=== PATIENT | female | born 1940 | race Caucasian/White ===

== ENCOUNTER → 2017-04-05 | Outpatient (CLI) | payer OTHER ==
[~2017-04-05] VITALS: Ht 165.1 cm; Wt 63.5 kg
[~2017-04-05] MED LIST: ALTACE10 MG PO; CARDIZEM CD240 MG PO; ELIQUIS2.5 MG PO
--- NOTE | ~2017-04-05 | EKG ---
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
[2017-04-05 07:34] VITALS: BP 126/69
== END | disposition home or self-care (01) ==
LOC: CATH 06:48
DX: I48.91 Unspecified atrial fibrillation (principal); I10 Essential (primary) hypertension; Z82.49 Family history of ischemic heart disease and other diseases of the circulatory system
CPT/HCPCS: 62110; 62900

== ENCOUNTER → 2019-02-21 | Outpatient (CLI) | payer OTHER ==
--- NOTE | 2019-02-21 13:49 | 2DMMODE ---
[facility] [place] [address] 2 D/M-MODE ECHOCARDIOGRAM Name: AISHA ZAMBRANO Room #: REG [facility]#: [id number] ������������� Admission: 02/21/19 ������������� Attend Phys: Shashank Babcock Discharge: ��� ������������� ��� Date of : 36 Date of Service: 02/21/19 1349 �� Report #: [id number] �������� ��������������������������������������������[id number] THIS REPORT FOR: //name// APPROVED REPORT Study performed: 02/21/2019 12:58:03 EXAM: Comprehensive 2D, Doppler, and color-flow Echocardiogram Patient Location: Out-Patient Status: routine BSA: 1.72 HR: 66 bpm BP: 140/68 mmHg Rhythm: NSR Other Information Study Quality: Good Indications Atrial Fibrillation Hx: Cardioversion 2D Dimensions RVDd: 38.49 mm IVSd: 9.58 (7-11mm) LVOT Diam: 21.40 (18-24mm) LVDd: 49.86 mm PWd: 7.79 (7-11mm) Ascending Ao: 37.74 (22-36mm) LVDs: 31.74 (25-40mm) Aortic Root: 32.75 mm Volumes Left Atrial Volume (Systole) Single Plane 4CH: 42.28 mL Single Plane 2CH: 48.56 mL LA ESV Index: 29.00 mL/m2 Aortic Valve AoV Peak Teofilo.: 1.67 m/s AO Peak Gr.: 11.16 mmHg LVOT Max P.69 mmHg LVOT Max V: 1.08 m/s CHAO Vmax: 2.33 cm2 Mitral Valve E/A Ratio: 0.8 MV Decel. Time: 218.30 ms [facility] [address] [address] 2 D/M-MODE ECHOCARDIOGRAM Name: AISHA ZAMBRANO Alicia Room #: [facility]#: [id number] ������������� Admission: 02/21/19 ������������� Attend Phys: Shashank Babcock Discharge: ��� ������������� ��� Date of : 36 Date of Service: 02/21/19 1349 �� Report #: [id number] �������� ��������������������������������������������[id number] MV E Max Teofilo.: 0.70 m/s MV A Teofilo.: 0.86 m/s MV PHT: 63.31 ms IVRT: 87.66 ms Pulmonary Valve PV Peak Teofilo.: 0.89 m/s PV Peak Gr.: 3.16 mmHg Pulmonary Vein P Vein S: 0.68 m/s P Vein D: 0.46 m/s P Vein S/D Ratio: 1.48 Tricuspid Valve TR Peak Teofilo.: 2.71 m/s RAP Estimate: 5.00 mmHg TR Peak Gr.: 29.42 mmHg PA Pressure: 34.00 mmHg Left Ventricle The left ventricle is normal size. There is normal LV segmental wall motion. Left ventricular systolic function is normal. LVEF is 55%. Mild diastolic dysfunction is present (impaired relaxation pattern). Right Ventricle The right ventricle is normal size. The right ventricular systolic function is normal. Atria The left atrium size is normal. The right atrium size is normal. Aortic Valve Aortic valve is trileaflet, minimally calcified. Trace aortic regurgitation. There is no aortic valvular stenosis. Mitral Valve Systolic leaflet flattening without definite prolapse Moderate mitral regurgitation. There is mild mitral valve prolapse. Tricuspid Valve The tricuspid valve is normal in structure. Mild tricuspid regurgitation. Estimated PAP is 35mmHg. Pulmonic Valve The pulmonary valve is normal in structure. Trace pulmonic [facility] [address] [place] [address] 2 D/M-MODE ECHOCARDIOGRAM Name: AISHA ZAMBRANO Alicia Room #: [facility]#: [id number] ������������� Admission: 02/21/19 ������������� Attend Phys: Shashank Babcock Discharge: ��� ������������� ��� Date of : 36 Date of Service: 02/21/19 1349 �� Report #: [id number] �������� ��������������������������������������������[id number] regurgitation. Great Vessels Ascending aorta measures at the upper limits of normal. IVC is normal in size and collapses >50% with inspiration. Pericardium There is no pericardial effusion. <Conclusion> Left ventricular systolic function is normal. There is normal LV segmental wall motion. LVEF is 55%. Mild diastolic dysfunction Aortic valve is trileaflet, minimally calcified. Trace aortic regurgitation, no stenosis. Systolic leaflet flattening without definite prolapse. Moderate mitral regurgitation. Pulmonary artery pressure of 35mmHg There is no pericardial effusion. ��������������������������������������������� <ELECTRONICALLY SIGNED> ���������������������������������������� By: Pawan Hancock MD, FAC ��������������������������������������������� 02/21/199 48 48 Pawan Hancock MD, FAC /INF
== END ==
LOC: CV 11:05
DX: I08.3 Combined rheumatic disorders of mitral, aortic and tricuspid valves (principal); I10 Essential (primary) hypertension; I48.1 Persistent atrial fibrillation

== ENCOUNTER → 2019-07-27 | Outpatient (CLI) | payer OTHER | LOC: NUC 07:31 | DX: I48.91 Unspecified atrial fibrillation (principal); I10 Essential (primary) hypertension; E78.5 Hyperlipidemia, unspecified; Z79.899 Other long term (current) drug therapy ==

== ENCOUNTER → 2019-08-14 | Outpatient (CLI) | payer OTHER ==
--- NOTE | ~2019-08-14 | P ---
[facility] [place] [address] PROCEDURE REPORT Name: AISHA ZAMBRANO [id number] Admission: 08/14/19 Attend Phys: Shashank Babcock MD Discharge: Date of : 36 Report #: [id number] THIS REPORT FOR: //name// CC: Ramy Babcock PREOPERATIVE DIAGNOSIS: Palpitations. POSTOPERATIVE DIAGNOSIS: Palpitations. The patient is a patient with history of AFib and recurrent palpitations. She is here for implantable loop recorder insertion. DESCRIPTION OF PROCEDURE: The patient underwent informed consent. She was prepped and draped in a sterile fashion. Next, I injected lidocaine at the incision site. Incision was made and the device was injected under the skin and the incision site was sutured with 3-0 Vicryl. Surgical glue was placed outer skin layer. There were no procedure related complications. The implanted device was a [employer] Confirm, model #3500, serial [id number]. CONCLUSIONS: Successful implantation of an implantable loop recorder. By: [id number] Shashank Babcock MD /nt
[2019-08-14 13:55] VITALS: BP 169/81
== END | disposition home or self-care (01) ==
LOC: CATH 10:57
DX: R00.2 Palpitations (principal); I48.91 Unspecified atrial fibrillation; Z79.01 Long term (current) use of anticoagulants; Z79.899 Other long term (current) drug therapy

== ENCOUNTER → 2019-11-21 | Outpatient (CLI) | payer OTHER ==
[~2019-11-21] VITALS: Ht 165.1 cm; Wt 62.6 kg
[~2019-11-21] MED LIST changes: +TAMBOCOR 100 M100 M1 PO
[2019-11-21 08:21] VITALS: BP 143/54
[2019-11-21 08:45] LABS: HEMATOCRIT 31.3 % (37.0-47.0); HEMOGLOBIN 10.1 gm/dL (12.0-15.0); MCH 27.9 pg (26.0-34.0); MCHC 32.1 g/dL (28.0-37.0); MCV 86.9 fL (80.0-100.0); RBC 3.6 mil/uL (4.20-5.00); RDW 14.5 % (10.5-14.5)
[2019-11-21 08:55] LABS: CALCIUM 8.7 mg/dL (8.5-10.1); CREATININE 1.2 mg/dL (0.6-1.0)
--- NOTE | 2019-11-21 12:43 | EKG ---
[facility] [place] [address] ELECTROCARDIOGRAM REPORT Name: AISHA ZAMBRANO Room #: REG [facility]#: [id number] Admission: 11/21/19 Attend Phys: Gaurav Patel MD Discharge: Date of : 36 Report #: [id number] THIS REPORT FOR: cc: Ramy Field MD, David P. 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 <ELECTRONICALLY SIGNED> By: Pawan Hancock MD, [facility] 11/21/1960 7 7 Pawan Hancock MD, FAC /EPI
--- NOTE | 2019-11-21 15:41 | CATHLAB ---
[facility] [place] [address] INVASIVE PROCEDURE REPORT Name: AIHSA ZAMBRANO Room #: REG [facility].#: [id number] Admission: 11/21/19 Attend Phys: Gaurav Patel MD Discharge: Date of : 36 Report #: [id number] THIS REPORT FOR: cc: Ramy Field MD, David P. MD Park, Jin S. MD ~ APPROVED REPORT Study performed: 11/21/2019 08:38:15 Patient Details Patient Status: Out-Patient Room #: The patient is a 78 year-old female Event Personnel Gaurav Patel Wagon Driver Salesperson, Rell Bang RTLeeroy Monitor, Ramy Coronado Monitor, Shakira Johnson Johnson, Ashley RN sheetmetal patternmaker Performed Left Heart Cath w/or w/o Coronaries [id number] [facility] Art Access - R femoral artery* [id number] Initial Mod Sed Same Phys/QHP Gr5y [id number] Hemostasis with Manual pressure Indication Atrial fibrillation, Dyspnea, Chest pain Risk Factors Hypercholesterolemia, Hypertension Procedure Narrative The Right Groin^ was infiltrated with 1% Lidocaine subcutaneous anesthesia. A PINNACLE 4FR Sheath #[id number] sheath was inserted into the RFA^. Coronary angiography was performed using coronary diagnostic catheters. The right coronary system was accessed and visualized with a JR4 catheter. The left coronary system was accessed and visualized with a JL4 catheter. The left ventricle was accessed and visualized with a PIGTAIL catheter. Hemostasis was obtained with manual pressure following sheath removal without any complications. The patient tolerated the procedure well and there were no complications associated with the procedure. There was no hematoma. Intraoperative Conscious Sedation [facility] [address] [place] [address] INVASIVE PROCEDURE REPORT Name: KENYAAISHA L Room #: REG [facility]#: [id number] Admission: 11/21/19 Attend Phys: Gaurav Patel MD Discharge: Date of : 36 Report #: [id number] Sedation start time: 10:02 Case end Time: 10:28 Fentanyl 100 mcg Versed 1 mg Fluoro Time: 3.20 minutes Dose: DAP 3023.00 cGycm2 806 mGy Contrast Type and Amount: Visipaque 35 ml Coronary Angiography The patient's coronary anatomy is co- dominant. Diagnostic Cath Left Main The left main artery is short segment, with no flow-limiting lesions. LAD The LAD is a moderate size caliber vessel, traversing the anterior wall and wrapping around the apex. There is mild diffuse disease in the mid segment, 20%. Diagonal 1 This is a small-caliber vessel, patent with no flow-limiting lesions. Diagonal 2 This is a moderate size caliber vessel, patent with no flow-limiting lesions. Circumflex This is a moderate size caliber vessel, patent with no flow-limiting lesions. This is a codominant vessel. OM1 This is a moderate size caliber vessel, patent with no flow-limiting lesions. OM2 This is a moderate size caliber vessel, patent with no flow-limiting lesions. Right Coronary The RCA is moderate size caliber vessel, with mild stenosis in the mid segment, 20% R PDA This is a moderate size caliber vessel, patent with no flow-limiting lesions. Left Ventriculography Left Ventriculography was not performed. Ejection Fraction was 55-60% based off patient's Nuclear Cardiac Stress Test. An LVEDP was measured and there is no gradient across the outflow tract. Hemodynamics The aortic pressure is 139/65 mmHg with a mean of 94 mmHg. The left ventricular pressure is 153/6 mmHg with a mean of mmHg. The left ventricular end diastolic pressure is 16 mmHg. Conclusion 1. 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 2. Codominant system. [facility] [address] [place] [address] INVASIVE PROCEDURE REPORT Name: AISHA ZAMBRANO Room #: REG [facility]#: [id number] Admission: 11/21/19 Attend Phys: Gaurav Patel MD Discharge: Date of : 36 Report #: [id number] 3. Normal LV systolic function. 4. Recommend aggressive risk factor management. <ELECTRONICALLY SIGNED> By: Gaurav Patel MD 11/21/19 1540 1540 1540 Gaurav Patel MD /BA
== END | disposition home or self-care (01) ==
LOC: CATH 07:42
PROVIDERS: Internal Medicine Cardiovascular Disease
DX: R07.9 Chest pain, unspecified (principal); I25.10 Atherosclerotic heart disease of native coronary artery without angina pectoris; R06.00 Dyspnea, unspecified; I10 Essential (primary) hypertension; I48.91 Unspecified atrial fibrillation; E78.00 Pure hypercholesterolemia, unspecified; Z98.890 Other specified postprocedural states; Z79.899 Other long term (current) drug therapy; Z90.49 Acquired absence of other specified parts of digestive tract; Z79.01 Long term (current) use of anticoagulants

== ENCOUNTER → 2019-12-06 | Outpatient (CLI) | payer OTHER | LOC: SJCVC 13:20 | DX: I44.0 Atrioventricular block, first degree (principal); I48.0 Paroxysmal atrial fibrillation; I10 Essential (primary) hypertension; I25.10 Atherosclerotic heart disease of native coronary artery without angina pectoris; E78.00 Pure hypercholesterolemia, unspecified; Z90.49 Acquired absence of other specified parts of digestive tract; Z79.899 Other long term (current) drug therapy ==

== ENCOUNTER → 2020-01-04 | Outpatient (CLI) | payer OTHER | LOC: SJCVC 11:03 | DX: E78.5 Hyperlipidemia, unspecified (principal) ==

== ENCOUNTER → 2020-01-30 | Outpatient (CLI) | payer OTHER | LOC: RAD 12:40 | DX: R06.02 Shortness of breath (principal); R06.00 Dyspnea, unspecified; M47.814 Spondylosis without myelopathy or radiculopathy, thoracic region; M41.86 Other forms of scoliosis, lumbar region ==

== ENCOUNTER → 2020-05-20 | Outpatient (CLI) | payer OTHER | LOC: LAB 10:39 | PROVIDERS: ATTEND Internal Medicine Cardiovascular Disease | DX: Z01.818 Encounter for other preprocedural examination (principal); Z11.59 Encounter for screening for other viral diseases ==

== ENCOUNTER → 2020-05-29 | Outpatient (CLI) | payer OTHER | LOC: LAB 08:20 | PROVIDERS: ATTEND Internal Medicine Cardiovascular Disease | DX: Z01.818 Encounter for other preprocedural examination (principal); Z11.59 Encounter for screening for other viral diseases ==

== ENCOUNTER → 2020-06-02 | Outpatient (CLI) | payer OTHER ==
[~2020-06-02] VITALS: Ht 165.1 cm; Wt 60.8 kg
[~2020-06-02] MED LIST changes: +ANORO ELLIPTA1 EACH INH; +LIPITOR 20 MG T20 M1 PO
[2020-06-02 07:20] VITALS: BP 138/61
--- NOTE | 2020-06-02 08:42 | NUR ---
RESTING ON CART. O2 AT 5L NC. VSS. NSR ON MONITOR. OPENS EYES IMMEDIATELY TO VOICE.
--- NOTE | 2020-06-02 09:16 | NUR ---
VSS. AWAKE. O2 REMOVED. IVF TURNED OFF. SPOUSE AT BEDSIDE.
--- NOTE | 2020-06-02 09:37 | TEE ---
[facility] [place] [address] TRANSESOPHAGEAL ECHOCARDIOGRAM Name: AISHA ZAMBRANO Room #: REG [facility] Leandra#: [id number] Admission: 06/02/20 Attend Phys: Pwaan Hancock MD, Discharge: Date of : 36 Report #: [id number] THIS REPORT FOR: cc: Ramy Field MD, David P. MD Lundgren, Craig H. MD [facility] ~ APPROVED REPORT Study performed: 06/02/2020 07:46:28 EXAM: Comprehensive 2D, Doppler, and color-flow Echocardiogram Patient Location: Out-Patient BSA: 1.67 HR: 61 bpm BP: 131/56 mmHg Rhythm: NSR Other Information Study Quality: Good Indications Mitral regurtitation. Procedure After obtaining informed consent, patient underwent transesophageal echo in the Writer Editor Holding. Type of Sedation : Conscious Sedation Sedation was achieved intravenously with: Versed (3) Fentanyl (100) Transesophageal probe was inserted and advanced into esophagus without difficulty by Pawan Hancock MD. Echo enhancement indication: R/O Septal defect. Echo enhancement agent administered: Agitated Saline The NADIA was performed without complications. Throughout the procedure, the blood pressure, pulse oximetry, cardiac rhythm, and rate were monitored. The patient tolerated the procedure without adverse effects. Recovery from conscious sedation was uneventful and vital signs were stable. Left Ventricle The left ventricle is normal size. There is normal LV segmental wall motion. There is normal left ventricular wall thickness. Left [facility] [address] [place] [address] TRANSESOPHAGEAL ECHOCARDIOGRAM Name: AISHA ZAMBRANO Room #: REG [facility]#: [id number] Admission: 06/02/20 Attend Phys: Pawan Hancock, Discharge: Date of : 38 Report #: [id number] ventricular systolic function is normal. LVEF is 55-60%. Right Ventricle The right ventricle is normal size. The right ventricular systolic function is normal. Atria Left atrium is dilated. No thrombus is visualized in the left atrium or appendage. No shunting noted by contrast bubble injection. Right atrium is dilated. Aortic Valve The aortic valve is trileaflet, mildly sclerotic. Trace aortic regurgitation. There is no aortic valvular stenosis. Mitral Valve Mild bi-leaflet mitral valve prolapse. Mild to at most moderate mitral regurgitation. No evidence of mitral valve stenosis. Tricuspid Valve The tricuspid valve is normal in structure. Trace tricuspid regurgitation. Pulmonic Valve The pulmonary valve is normal in structure. Trace pulmonic regurgitation. Great Vessels The aortic root is normal in size. The ascending aorta is normal in size. Mild atherosclerotic plaque is present in the descending aorta. IVC is normal in size and collapses >50% with inspiration. Pericardium There is no pericardial effusion. <Conclusion> Left ventricular systolic function is normal. There is normal LV segmental wall motion. LVEF is 55-60%. Both atria are dilated. No thrombus is visualized in the left atrium or appendage. No shunting noted by contrast bubble injection. The aortic valve is trileaflet, mildly sclerotic. Trace aortic regurgitation, no stenosis. [facility] [address] [place] [address] TRANSESOPHAGEAL ECHOCARDIOGRAM Name: AISHA ZAMBRANO Alicia Room #: REG [facility]#: [id number] Admission: 06/02/20 Attend Phys: Pawan Hancock, Discharge: Date of : 36 Report #: [id number] Mild bi-leaflet mitral valve prolapse. Mild to at most moderate mitral regurgitation. There is no pericardial effusion. <ELECTRONICALLY SIGNED> By: Pawan Hancock MD, [facility] 06/02/2037 6 6 Pawan Hancock MD, [facility] /INF
== END | disposition home or self-care (01) ==
LOC: CATH 06:35
PROVIDERS: ATTEND Internal Medicine
DX: I48.91 Unspecified atrial fibrillation (principal); I08.3 Combined rheumatic disorders of mitral, aortic and tricuspid valves; I70.0 Atherosclerosis of aorta; I10 Essential (primary) hypertension; E78.5 Hyperlipidemia, unspecified; Z98.890 Other specified postprocedural states; Z79.899 Other long term (current) drug therapy; Z90.49 Acquired absence of other specified parts of digestive tract; Z79.01 Long term (current) use of anticoagulants

== ENCOUNTER → 2020-12-10 | Outpatient (CLI) | payer OTHER | LOC: SJCVCIMAG 10:19 | PROVIDERS: ATTEND Internal Medicine Cardiovascular Disease | DX: I08.0 Rheumatic disorders of both mitral and aortic valves (principal); I11.9 Hypertensive heart disease without heart failure; R94.31 Abnormal electrocardiogram [ECG] [EKG]; I48.91 Unspecified atrial fibrillation; E78.5 Hyperlipidemia, unspecified; I25.10 Atherosclerotic heart disease of native coronary artery without angina pectoris; E78.00 Pure hypercholesterolemia, unspecified; Z90.49 Acquired absence of other specified parts of digestive tract; Z98.890 Other specified postprocedural states; Z79.899 Other long term (current) drug therapy; Z86.711 Personal history of pulmonary embolism; Z82.49 Family history of ischemic heart disease and other diseases of the circulatory system ==